=== PATIENT | female | born 1995 | race Caucasian/White ===

== ENCOUNTER 2016-08-02 23:57 | Emergency (ER) | payer MEDICAID ==
[2016-08-03] MEDS ORDERED: Morphine 10 MG/ML Syringe IV ONE (00:12)
[2016-08-03] MEDS ORDERED: Sodium Chloride 0.9% 1,000 ML IV ONE (00:12)
[2016-08-03] MEDS ORDERED: Ondansetron 4 MG/2 ML SDV IVPUSH ONE (00:13)
[2016-08-03] MEDS ORDERED: Ondansetron 4 MG/2 ML SDV ONE (00:30)
--- NOTE | 2016-08-03 00:30 | EDM.PDOC ---
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 Pool her OB outpatient yesterday. Patient was informed that she would start having significant amounts of bleeding and cramping into the report to the ER if it became intolerable. Patient indicates she has never had pain like this before.] Review of systems: As per history of present illness and below otherwise all systems reviewed and negative. Past medical history: As per history of present illness and as reviewed below otherwise noncontributory. Surgical history: As per history of present illness and as reviewed below otherwise noncontributory. Social history: No reported history of drug or alcohol abuse. Family history: As per history of present illness and as reviewed below otherwise noncontributory. Physical exam: HEENT: Atraumatic, normocephalic, pupils reactive, negative for conjunctival pallor or scleral icterus, mucous membranes moist, throat clear, neck supple, nontender, trachea midline. Lungs: Clear to auscultation, breath sounds equal bilaterally, chest nontender. Heart: S1S2, regular, negative for clicks, rubs, or JVD. Abdomen: Soft, nondistended, nontender. Negative for masses or hepatosplenomegaly. Negative for costovertebral tenderness. Pelvis: Stable nontender. Genitourinary: Deferred. Rectal: Deferred. Extremities: Atraumatic, negative for cords or calf pain. Neurovascular unremarkable. Neuro: Awake, alert, oriented. Cranial nerves II through XII unremarkable. Cerebellum unremarkable. Motor and sensory unremarkable throughout. Exam nonfocal. Patient had [facility] and Dr. Pool's office yesterday. Diagnostics: [UA, urine hCG, ultrasound transvaginal to evaluate for parts of conception] Therapeutics: [IV fluid, morphine, Zofran] Impression: [] Plan: [] Definitive disposition and diagnosis as appropriate pending reevaluation and review of above. (Ceasar Hernandez) - Related Data Allergies/ADRs: Allergies Allergy/AdvReac Type Severity Reaction Status Date / Time codeine Allergy Shortness Verified 08/03/16 00:41 of Breath Home Meds: Home Meds l-Norgest/E.estradion-E.estrad [Camrese 0.15-0.03-0.01 MG] 1 each PO DAILY 09/15 [History] Social & Family History - Tobacco Use Second Hand Smoke Exposure: No - Alcohol Use Days Per Week of Alcohol Use: 0 - Recreational Drug Use Recreational Drug Use: No <Ceasar Hernandez - Last Filed: 08/03/16 01:16> ED ROS GENERAL - Review of Systems Review Of Systems: See Below (See history of present illness) <Ceasar Hernandez - Last Filed: 08/03/16 01:16> ED EXAM - Physical Exam Exam: See Below (See history of present illness) <Ceasar Hernandez - Last Filed: 08/03/16 01:16> Course <Ceasar Hernandez - Last Filed: 08/03/16 01:16> <Fabien Eugene - Last Filed: 08/03/16 02:39> - Vital Signs Last Recorded V/S: Last Vital Signs Temp 99.1 F 08/03/16 02:24 Pulse 84 08/03/16 02:24 Resp 14 08/03/16 02:24 BP 109/58 L 08/03/16 02:24 Pulse Ox 98 08/03/16 02:24 (Fabien Eugene) - Orders/Labs/Meds Orders: Active Orders 24 hr Category Date Time Status OB 1st Tri Sgl 1st Gest [US] Stat Exams 08/03/16 00:07 Taken HCG QUALITATIVE,URINE [URCHEM] Stat Lab 08/03/16 00:07 Uncollected UA W/MICROSCOPIC [URIN] Stat Lab 08/03/16 00:07 Uncollected (Ceasar Hernandez) (Fabien Eugene) Labs: Laboratory Tests 08/03/16 08/03/16 08/03/16 Range/Units 00:18 00:18 00:18 WBC 14.64 H (4.0-11.0) K/uL RBC 4.24 L (4.30-5.90) M/uL Hgb 12.2 (12.0-16.0) g/dL Hct 36.2 (36.0-46.0) % MCV 85.4 (80.0-98.0) fL MCH 28.8 (27.0-32.0) pg MCHC 33.7 (31.0-37.0) g/dL RDW Std Deviation 38.6 (28.0-62.0) fl RDW Coeff of Louis 13 (11.0-15.0) % Plt Count 291 (150-400) K/uL MPV 10.40 (7.40-12.00) fL Neut % (Auto) 64.7 (48.0-80.0) % Lymph % (Auto) 26.0 (16.0-40.0) % [place] % (Auto) 8.8 (0.0-15.0) % Eos % (Auto) 0.3 (0.0-7.0) % Baso % (Auto) 0.2 (0.0-1.5) % Neut # (Auto) 9.5 H (1.4-5.7) K/uL Lymph # (Auto) 3.8 H (0.6-2.4) K/uL [place] # (Auto) 1.3 H (0.0-0.8) K/uL Eos # (Auto) 0.1 (0.0-0.7) K/uL Baso # (Auto) 0.0 (0.0-0.1) K/uL HCG, Quant 5488.5 mIU/mL Blood Type A NEGATIVE (Fabien Eugene) Meds: Medications Discontinued Medications Generic Name Dose Route Start Last Admin Trade Name Thony PRN Reason Stop Dose Admin Fentanyl 50 mcg 08/03/16 00:49 08/03/16 00:56 Sublimaze IVPUSH 08/03/16 00:50 50 mcg ONETIME ONE Administration Fentanyl 50 mcg 08/03/16 02:28 08/03/16 02:35 Sublimaze IVPUSH 08/03/16 02:29 50 mcg ONETIME ONE Administration Sodium Chloride 1,000 mls @ 999 mls/hr 08/03/16 00:12 08/03/16 00:20 Normal Saline IV 08/03/16 01:12 999 mls/hr STAT ONE Administration Morphine Sulfate 4 mg 08/03/16 00:12 08/03/16 00:27 Morphine IV 08/03/16 00:13 4 mg ONETIME ONE Administration Ondansetron HCl 8 mg 08/03/16 00:13 08/03/16 00:26 Zofran IVPUSH 08/03/16 00:14 8 mg ONETIME ONE Administration Ondansetron HCl Confirm 08/03/16 00:30 08/03/16 00:49 Zofran Administered 08/03/16 00:31 Not Given Dose 4 mg .ROUTE .STK-MED ONE Rho Immune Globulin 300 mcg 08/03/16 01:03 Rhophylac IM 08/03/16 01:04 ONETIME ONE (Ceasar Hernandez) (Fabien Eugene) - Re-Assessments/Exams Free Text/Narrative Re-Assessment/Exam: 08/03/16 02:36 Ceasar advised me regarding this patient. I reviewed with the patient the ultrasound findings. We discussed proper management. (Fabien Eugene) Departure <Ceasar Hernandez - Last Filed: 08/03/16 01:16> - Departure Time of Disposition: 02:45 Condition: good <Fabien Eugene - Last Filed: 08/03/16 02:39> - Departure Disposition: Home, Self-Care 01 Clinical Impression: Spontaneous , Incomplete Referrals: Angeles Pool MD [Primary Care Provider] - Forms: ED Department Discharge Additional Instructions: Followup if heavy bleeding or uncontrollable pain. Otherwise followup as previously recommended by Dr. pool. We discussed potential side effects of Percocet 10/325. We included discussion of risk of constipation sedation and habituation. He verbalizes understanding. She will be sent home with one Percocet 10 325. A prescription is written for Percocet 10 325 one by mouth every 4 hours when necessary pain dispense 30 no refills.
[2016-08-03] MEDS ORDERED: fentaNYL 100 MCG/2 ML SDV IVPUSH ONE ×2 (00:49→02:28)
[2016-08-03] MEDS ORDERED: Rho(D) Immune Globulin 300 MCG/2 ML Syringe IM ONE (01:03)
[2016-08-03] MEDS ORDERED: Acetaminophen/oxyCODONE 325-10 MG Tab PO ONE (02:40)
[2016-08-03 03:02] VITALS: BP 109/48
--- NOTE | 2016-08-03 16:24 | US ---
MEXAM DATE: 08/02/16 PATIENT'S AGE: 20 Patient: ANETTE LUND Facility: [place], [place] Site . Site : 1995 Study: US OB Pelvis [id number]/31/2017 2:00:09 AM Ordering Physician: Doctor Luis Final Report: INDICATION: Pelvic pain following miscarriage yesterday TECHNIQUE: Ultrasound OB pelvis transvaginal. Real time trejo scale imaging of the pelvis was performed. COMPARISON: None FINDINGS: The uterus measures 8.9 x 5.4 x 5 cm. Endometrium is heterogeneous and measures 22 mm in thickness near the lower uterine segment. This region has mildly increased vascularity is seen on image 23. No intrauterine gestational sac is identified. The myometrium appears normal. The right ovary measures 1.8 x 3.3 x 2.5 cm while the left ovary measures 2.4 x 1.4 x 2.2 cm. Arterial blood flow seen within both ovaries. No significant ascites noted. IMPRESSION: The endometrial complex is heterogeneous, echogenic and focally thickened near the lower uterine segment where there is also mild vascularity seen. Findings are suspicious for retained products of conception. Dictated by Trell Ace MD @ 08/03/2016 2:18:44 AM Dictated by: Trell Ace MD @ 08/03/2016 02:19:10 (Electronic Signature) Report Signed by Proxy and Original Signed Document filed in the Medical Record. [facility]
== END 2016-08-03 02:58 | disposition home or self-care (01) ==
LOC: MW.ED 23:57
DX: O03.4 Incomplete spontaneous abortion without complication (principal); Z88.5 Allergy status to narcotic agent; Z79.899 Other long term (current) drug therapy
CPT/HCPCS: 36415; 76801; 84702; 85025; 86900; 86901; 96361; 96374; 96375; 96376; 99284; J2270; J2405; J3010; J7040

== ENCOUNTER → 2016-09-18 | Outpatient (CLI) | payer MEDICAID | END | disposition home or self-care (01) | LOC: MW.CHFP 12:19 | PROVIDERS: ATTEND Emergency Medicine | DX: D18.01 Hemangioma of skin and subcutaneous tissue (principal) | CPT/HCPCS: 88305 ==

== ENCOUNTER 2017-04-03 11:25 | Emergency (ER) | payer MEDICAID ==
[2017-04-03] MEDS ORDERED: Sodium Chloride 0.9% 1,000 ML IV ONE (11:41)
--- NOTE | 2017-04-03 11:57 | EDM.PDOC ---
ED HPI GENERAL MEDICAL PROBLEM - General Chief Complaint: Cardiovascular Problem Stated Complaint: HEART ISSUES Time Seen by Provider: 04/03/17 11:35 Source of Information: Reports: Patient History Limitations: Reports: No Limitations - History of Present Illness INITIAL COMMENTS - FREE TEXT/NARRATIVE: HISTORY AND PHYSICAL: Palpitations History of present illness: Patient is a 21-year-old female who presents to the emergency room from [facility] with complaints of palpitations for 5 days. She initially presented to her [employer]NEL HEADING [employer]PERVIS[employer] with these concerns as she is 29 weeks . At [facility] they did do an EKG which showed a heart rate of 93 bpm and a normal sinus rhythm. They did assess the baby and there is no concern of any OB related problems. Patient had a normal NST although she had an episode where her heart rate reportedly went up to 120 during this exam. Patient states that she will be sitting and at rest when she feels these palpitations and they can last anywhere for a few seconds to several minutes. It is not brought on by physical activity or exertion. Denies any associated symptoms. Denies any chest pain, nausea, vomiting or shortness of breath. She does not get diaphoretic or feel like passing out. She has no previous history of an irregular heart rhythm or cardiac history. Denies any vaginal bleeding or cramping. 2 para 0 29 weeks gestation Review of systems: As per history of present illness and below otherwise all systems reviewed and negative. Past medical history: As per history of present illness and as reviewed below otherwise noncontributory. Surgical history: As per history of present illness and as reviewed below otherwise noncontributory. Social history: No reported history of drug or alcohol abuse. Family history: As per history of present illness and as reviewed below otherwise noncontributory. Physical exam: Gen.: Well-developed and well-nourished 21-year-old female. Appears in no acute distress and nontoxic. Alert and oriented. HEENT: Atraumatic, normocephalic, pupils reactive, negative for conjunctival pallor or scleral icterus, mucous membranes moist, throat clear, neck supple, nontender, trachea midline. Lungs: Clear to auscultation, breath sounds equal bilaterally, chest nontender. Heart: S1S2, regular, negative for clicks, rubs, or JVD. Abdomen: Soft, 29 weeks , nontender. Negative for masses or hepatosplenomegaly. Negative for costovertebral tenderness. Pelvis: Stable nontender. Genitourinary: Deferred. Rectal: Deferred. Extremities: Atraumatic, moves all extremities per self, negative for cords or calf pain. Neurovascular unremarkable. Neuro: Awake, alert, oriented. Cranial nerves II through XII unremarkable. Cerebellum unremarkable. Motor and sensory unremarkable throughout. Exam nonfocal. The lab results were all within normal limits at today's visit. We were unable to capture any palpitations on the EKG or athletic monitor. Patient states that she did not have any sensation of these palpitations while she has been here. I am going to place the patient on a 48-hour Holter monitor. The respiratory therapist is on her way down currently to place this on. She will return on Saturday to have this removed. These results will be forwarded to Dr. Kamara (her primary care provider) and Dr. jimenez (her [employer] HEADING [employer]PER[employer]). Patient is aware that these results will be sent to them and she will need to follow-up on this. We did discuss the need for her to limit her caffeine usage. Patient states that she does drink quite a bit of caffeinated beverages but will cut back on these. Diagnostics: CBC, CMP, TSH, EKG Therapeutics: IV fluid Impression: Palpitations Plan: 1. Please limit her caffeine use. 2. A Holter monitor was placed on you today. This will need to be removed in 48 hours. These results will be sent to Dr. Kamara (primary care provider) and Dr. jimenez (TUNNEL HEADING SUPERVISOR) and should be discussed with them. 3. Please follow-up with your [employer]NEL [employer]ING [employer]PERVISOR as you already have arranged. Return to the ED as needed and as we discussed. Definitive disposition and diagnosis as appropriate pending reevaluation and review of above. - Related Data Allergies Allergy/AdvReac Type Severity Reaction Status Date / Time codeine Allergy Shortness Verified 04/03/17 11:35 of Breath Home Meds: Home Meds l-Norgest/E.estradion-E.estrad [Camrese 0.15-0.03-0.01 MG] 1 each PO DAILY 09/15 [History] Past Medical History HEENT History: Reports: None Cardiovascular History: Reports: None Respiratory History: Reports: None Gastrointestinal History: Reports: None Genitourinary History: Reports: None T[employer]ING SUPER[employer]OR History: Reports: Musculoskeletal History: Reports: None Neurological History: Reports: None Psychiatric History: Reports: None Endocrine/Metabolic History: Reports: None Hematologic History: Reports: None Immunologic History: Reports: None Oncologic (Cancer) History: Reports: None Dermatologic History: Reports: None - Infectious Disease History Infectious Disease History: Reports: None - Past Surgical History HEENT Surgical History: Reports: Adenoidectomy, Tonsillectomy GI Surgical History: Reports: Cholecystectomy Female Surgical History: Reports: Other (See Below) Other Female Surgeries/Procedures: Explor lap Social & Family History - Family History Family Medical History: Noncontributory - Tobacco Use Smoking Status *Q: Never Smoker Second Hand Smoke Exposure: No - Caffeine Use Caffeine Use: Reports: None - Alcohol Use Days Per Week of Alcohol Use: 0 - Recreational Drug Use Recreational Drug Use: No ED ROS GENERAL - Review of Systems Review Of Systems: ROS reveals no pertinent complaints other than HPI. ED EXAM, GENERAL - Physical Exam Exam: See Below (See dictation) Course - Vital Signs Last Recorded V/S: Last Vital Signs Temp 97.3 F 04/03/17 11:25 Pulse 91 04/03/17 11:25 Resp 18 04/03/17 11:25 BP 119/58 L 04/03/17 11:25 Pulse Ox 97 04/03/17 11:25 - Orders/Labs/Meds Orders: Active Orders 24 hr Category Date Time Status Cardiac Monitoring [RC] . DIRECTED Care 04/03/17 11:34 Active Communication Order [RC] STAT Care 04/03/17 11:34 Active EKG Documentation Completion [RC] STAT Care 04/03/17 11:34 Active Labs: Laboratory Tests 04/03/17 04/03/17 Range/Units 11:50 11:50 WBC 10.62 (4.0-11.0) K/uL RBC 3.70 L (4.30-5.90) M/uL Hgb 10.8 L (12.0-16.0) g/dL Hct 32.4 L (36.0-46.0) % MCV 87.6 (80.0-98.0) fL MCH 29.2 (27.0-32.0) pg MCHC 33.3 (31.0-37.0) g/dL RDW Std Deviation 41.4 (28.0-62.0) fl RDW Coeff of Louis 13 (11.0-15.0) % Plt Count 268 (150-400) K/uL MPV 10.70 (7.40-12.00) fL Neut % (Auto) 72.2 (48.0-80.0) % Lymph % (Auto) 20.1 (16.0-40.0) % [place] % (Auto) 7.1 (0.0-15.0) % Eos % (Auto) 0.3 (0.0-7.0) % Baso % (Auto) 0.3 (0.0-1.5) % Neut # (Auto) 7.7 H (1.4-5.7) K/uL Lymph # (Auto) 2.1 (0.6-2.4) K/uL [place] # (Auto) 0.8 (0.0-0.8) K/uL Eos # (Auto) 0.0 (0.0-0.7) K/uL Baso # (Auto) 0.0 (0.0-0.1) K/uL Nucleated RBC % 0.0 /100WBC Nucleated RBCs # 0 K/uL Sodium 136 (136-146) mmol/L Potassium 4.2 (3.5-5.1) mmol/L Chloride 107 (98-110) mmol/L Carbon Dioxide 21 (21-31) mmol/L BUN 5 L (6.0-23.0) mg/dL Creatinine 0.6 (0.6-1.5) mg/dL Est Cr Clr Drug Dosing 116.32 mL/min Estimated GFR (MDRD) > 60.0 ml/min Glucose 82 (60-110) mg/dL Calcium 9.3 (8.8-10.8) mg/dL Total Bilirubin 0.3 (0.1-1.5) mg/dL AST 20 (5-40) IU/L ALT 18 (8-54) IU/L Alkaline Phosphatase 150 (40-150) Total Protein 7.1 (6.0-8.0) g/dL Albumin 3.5 (3.5-5.0) g/dL Globulin 3.6 H (2.0-3.5) g/dL Albumin/Globulin Ratio 1.0 L (1.3-2.8) TSH 3rd Generation 1.95 (0.47-5.0) uIU/mL Meds: Medications Discontinued Medications Generic Name Dose Route Start Last Admin Trade Name Thony PRN Reason Stop Dose Admin Sodium Chloride 1,000 mls @ 999 mls/hr 04/03/17 11:41 04/03/17 12:04 Normal Saline IV 04/03/17 12:41 999 mls/hr STAT ONE Administration Departure - Departure Time of Disposition: 13:18 Disposition: Home, Self-Care 01 Clinical Impression: Palpitations Referrals: Harsha Kamara MD [Primary Care Provider] - Forms: ED Department Discharge Additional Instructions: My general discharge The following information is given to patients seen in the emergency department who are being discharged to home. This information is to outline your options for follow-up care. We provide all patients seen in our emergency department with a follow-up referral. The need for follow-up, as well as the timing and circumstances, are variable depending upon the specifics of your emergency department visit. If you don't have a primary care physician on staff, we will provide you with a referral. We always advise you to contact your personal physician following an emergency department visit to inform them of the circumstance of the visit and for follow-up with them and/or the need for any referrals to a consulting specialist. The emergency department will also refer you to a specialist when appropriate. This referral assures that you have the opportunity for follow-up care with a specialist. All of these measure are taken in an effort to provide you with optimal care, which includes your follow-up. Under all circumstances we always encourage you to contact your private physician who remains a resource for coordinating your care. When calling for follow-up care, please make the office aware that this follow-up is from your recent emergency room visit. If for any reason you are refused follow-up, please contact the [facility] Emergency Department at and asked to speak to the emergency department charge nurse. [facility] [address] [place] [id number] [facility] [address], [place] [address] 1. Please limit your caffeine use. 2. A Holter monitor was placed on you today. This will need to be removed in 48 hours. These results will be sent to Dr. Kamara (primary care provider) and Dr. jimenez (T[employer]NEL HEADING SUPERVISOR) and should be discussed with them. 3. Please follow-up with your T[employer]NEL HEADING SUPERVISOR as you already have arranged. Return to the ED as needed and as we discussed. - My Orders Last 24 Hours: My Active Orders 04/03/17 11:34 Cardiac Monitoring [RC] . DIRECTED Communication Order [RC] STAT EKG Documentation Completion [RC] STAT - Assessment/Plan Last 24 Hours: My Active Orders 04/03/17 11:34 Cardiac Monitoring [RC] . DIRECTED Communication Order [RC] STAT EKG Documentation Completion [RC] STAT
[2017-04-03 12:29] LABS: CHLORIDE,CL 107 mmol/L (98-110); SODIUM,NA 136 mmol/L (136-146)
[2017-04-03 13:34] VITALS: BP 107/67
== END 2017-04-03 13:26 | disposition home or self-care (01) ==
LOC: MW.ED 11:25
DX: O99.89 Other specified diseases and conditions complicating pregnancy, childbirth and the puerperium (principal); R00.2 Palpitations; Z88.5 Allergy status to narcotic agent; Z3A.29 29 weeks gestation of pregnancy
CPT/HCPCS: 36415; 80053; 84443; 85025; 93005; 93225; 96360; 99285; J7040

== ENCOUNTER 2017-04-13 19:10 | Observation (INO) | payer OTHER, MEDICAID ==
--- NOTE | 2017-04-15 16:22 | US ---
EXAM DATE: 04/13/17 PATIENT'S AGE: 21 Patient: ANETTE LUND Facility: [place], [place] Site . Site : 1995 Study: US OB Pelvis [id number]/9/2017 9:11:17 PM Ordering Physician: Yrn Reynoso Final Report: INDICATION: Fall. TECHNIQUE: Ultrasound OB pelvis. COMPARISON: None. FINDINGS: Sonographic imaging demonstrates a single living intrauterine gestation. Fetus demonstrates a regular cardiac rate of 150 beats per minute. The placenta lies posteriorly and appears grossly unremarkable as visualized. Amniotic fluid volume appears normal with an DARLIN of 15.2 cm. breathing movements, motion, and tone were all observed. IMPRESSION: 1. Single living intrauterine with a biophysical profile of 8/8. 2. Grossly unremarkable placenta. Dictated by Sergey Crawford MD @ 04/13/2017 9:48:43 PM Dictated by: Sergey Crawford MD @ 04/13/2017 21:48:51 (Electronic Signature) Report Signed by Proxy. [facility]
== END 2017-04-13 23:35 | disposition left against medical advice (07) ==
LOC: MW.OBCHECK 19:10 → MW.OB 19:11 → MW.OBCHECK 19:25 → MW.OB 19:25
PROVIDERS: ADMIT Obstetrics & Gynecology; ATTEND Obstetrics & Gynecology
DX: Z04.3 Encounter for examination and observation following other accident (principal); Z3A.31 31 weeks gestation of pregnancy; W00.0XXA Fall on same level due to ice and snow, initial encounter
CPT/HCPCS: 36415; 59025; 76819; 81001; 85025; 85027; 85610; 86850; 86870; 86900; 86901; G0378

== ENCOUNTER 2017-05-29 05:15 | Inpatient (IN) | payer OTHER, MEDICAID ==
[2017-05-29] MEDS ORDERED: Sodium Chloride 0.9% 2.5 ML Syringe FLUSH PRN (06:12)
[2017-05-29] MEDS ORDERED: Misoprostol 200 MCG Tab PO PRN (06:12)
[2017-05-29] MEDS ORDERED: Sodium Chloride 0.9% 10 ML Syringe FLUSH PRN (06:12)
[2017-05-29] MEDS ORDERED: Butorphanol 1 MG/ML SDV IVPUSH PRN (06:12)
[2017-05-29] MEDS ORDERED: Methylergonovine 0.2 MG/1 ML Amp IM PRN ×2 (06:12→10:29)
[2017-05-29] MEDS ORDERED: Lidocaine 1% 50 ML MDV INJECT PRN (06:12)
[2017-05-29] MEDS ORDERED: Carboprost Tromethamine 250 MCG/1 ML Amp IM PRN (06:12)
[2017-05-29] MEDS ORDERED: Nalbuphine 10 MG/1 ML Vial IVPUSH PRN (06:12)
[2017-05-29] MEDS ORDERED: Water For Irrigation,Sterile 1,000 ML Container IRR PRN (06:12)
[2017-05-29] MEDS ORDERED: Oxytocin/0.9 % Sodium Chloride 30 UNIT/500 ML BAG IV SCH (06:15)
[2017-05-29] MEDS: Lactated Ringers 1,000 ML IV SCH ×2 (06:25→07:15)
[2017-05-29] MEDS ORDERED: Ropivacaine 100 ML ONE (06:50)
[2017-05-29] MEDS ORDERED: Ropivacaine 0.2% 2 MG/ML 20 ML SDV ONE (06:50)
[2017-05-29] MEDS ORDERED: fentaNYL 100 MCG/2 ML SDV ONE (06:50)
--- NOTE | 2017-05-29 07:17 | PCM.PREANE ---
Preanesthetic Assessment - Anesthesia/Transfusion/Family Hx Anesthesia History: Prior Anesthesia Without Reaction Family History of Anesthesia Reaction: No - Review of Systems Other: Reports: None - Physical Assessment Height: 5 ft 2 in Weight: 82.1 kg ASA Class: 2 Mental Status: Alert & Oriented x3 Dentition: Reports: Normal Dentition Thyro-Mental Finger Breadths: 3 Mouth Opening Finger Breadths: 3 ROM/Head Extension: Full - Lab Values: Laboratory Last Values WBC 11.36 K/uL (4.0-11.0) H 05/29/17 06:22 RBC 4.21 M/uL (4.30-5.90) L 05/29/17 06:22 Hgb 11.7 g/dL (12.0-16.0) L 05/29/17 06:22 Hct 35.3 % (36.0-46.0) L 05/29/17 06:22 MCV 83.8 fL (80.0-98.0) 05/29/17 06:22 MCH 27.8 pg (27.0-32.0) 05/29/17 06:22 MCHC 33.1 g/dL (31.0-37.0) 05/29/17 06:22 RDW Std Deviation 40.6 fl (28.0-62.0) 05/29/17 06:22 RDW Coeff of Louis 14 % (11.0-15.0) 05/29/17 06:22 Plt Count 221 K/uL (150-400) 05/29/17 06:22 MPV 11.80 fL (7.40-12.00) 05/29/17 06:22 Nucleated RBC % 0.0 /100WBC 05/29/17 06:22 Nucleated RBCs # 0 K/uL 05/29/17 06:22 - Allergies Allergies/Adverse Reactions: Allergies Allergy/AdvReac Type Severity Reaction Status Date / Time codeine Allergy Shortness Verified 05/29/17 06:50 of Breath - Blood Blood Available: Yes Product(s) Available: PRBC - Acknowledgements Anesthesia Type Planned: Epidural Pt an Appropriate Candidate for the Planned Anesthesia: Yes Alternatives and Risks of Anesthesia Discussed w Pt/Guardian: Yes Pt/Guardian Understands and Agrees with Anesthesia Plan: Yes PreAnesthesia Questionnaire HEENT History: Reports: None Cardiovascular History: Reports: None Respiratory History: Reports: None Gastrointestinal History: Reports: None Genitourinary History: Reports: None PUBLIC HEALTH SPECIALIST History: Reports: Musculoskeletal History: Reports: None Neurological History: Reports: None Psychiatric History: Reports: None Endocrine/Metabolic History: Reports: None Hematologic History: Reports: None Immunologic History: Reports: None Oncologic (Cancer) History: Reports: None Dermatologic History: Reports: None - Infectious Disease History Infectious Disease History: Reports: None - Past Surgical History HEENT Surgical History: Reports: Adenoidectomy, Tonsillectomy GI Surgical History: Reports: Cholecystectomy Female Surgical History: Reports: Other (See Below) Other Female Surgeries/Procedures: Explor lap - SUBSTANCE USE Smoking Status *Q: Never Smoker Second Hand Smoke Exposure: No Days Per Week of Alcohol Use: 0 Recreational Drug Use History: No - HOME MEDS Home Medications: Home Meds l-Norgest/E.estradion-E.estrad [Camrese 0.15-0.03-0.01 MG] 1 each PO DAILY 09/15 [History] - CURRENT (IN HOUSE) MEDS Current Meds: Current Medications Butorphanol Tartrate (Stadol) 1 mg IVPUSH Q1H PRN PRN Reason: Pain Carboprost Tromethamine (Hemabate Ds) 250 mcg IM ASDIRECTED PRN PRN Reason: Post Hemorrhage Lactated Ringer's (Ringers, Lactated) 1,000 mls @ 150 mls/hr IV ASDIRECTED [facility] Last Admin: 05/29/17 07:15 Dose: 150 mls/hr Oxytocin/Sodium Chloride (Oxytocin 30 Unit/500 Ml-Ns) 30 unit in 500 mls @ 999 mls/hr IV TITRATE [facility] Lidocaine HCl (Xylocaine 1%) 50 ml INJECT .ONCE PRN PRN Reason: Laceration repair Methylergonovine Maleate (Methergine) 0.2 mg IM ASDIRECTED PRN PRN Reason: Post Hemorrhage Misoprostol (Cytotec) 200 mcg PO .ONCE PRN PRN Reason: Post Hemorrhage Nalbuphine HCl (Nubain) 10 mg IVPUSH Q1H PRN PRN Reason: Pain (severe 7-10) Sodium Chloride (Saline Flush) 10 ml FLUSH ASDIRECTED PRN PRN Reason: Keep Vein Open Sodium Chloride (Saline Flush) 2.5 ml FLUSH ASDIRECTED PRN PRN Reason: Keep Vein Open Sterile Water (Sterile Water For Irrigation) 1,000 ml IRR ASDIRECTED PRN PRN Reason: delivery Discontinued Medications Fentanyl (Sublimaze) Confirm Administered Dose 200 mcg .ROUTE .STK-MED ONE Stop: 05/29/17 06:51 Ropivacaine (Naropin 0.2%) Confirm Administered Dose 100 mls @ as directed .ROUTE .STK-MED ONE Stop: 05/29/17 06:51 Ropivacaine (Naropin 0.2%) Confirm Administered Dose 20 ml .ROUTE .STK-MED ONE Stop: 05/29/17 06:51
[2017-05-29] MEDS ORDERED: Ibuprofen 400 MG Tab PO PRN (10:29)
[2017-05-29] MEDS ORDERED: Lanolin 100% Cream 7 GM Tube TOP PRN (10:29)
[2017-05-29] MEDS ORDERED: Witch Hazel Medicated Pads 40/Jar TOP PRN (10:29)
[2017-05-29] MEDS ORDERED: Bisacodyl 10 MG Supp RECTAL PRN (10:29)
[2017-05-29] MEDS ORDERED: Docusate Sodium 100 MG Cap PO PRN (10:29)
[2017-05-29] MEDS ORDERED: Acetaminophen 500 MG Tab PO PRN ×2 (10:29)
[2017-05-29] MEDS ORDERED: Benzocaine/Menthol 20%-0.5% Spray 78 GM Cannister TOP PRN (10:29)
--- NOTE | 2017-05-29 11:59 | OR ---
SURGEON: Angeles Pool M.D. DATE OF PROCEDURE: 05/29/2017 PREOPERATIVE DIAGNOSES: 1. A 37 and 6/7th week intrauterine . 2. Active spontaneous labor. 3. Group B strep negative. 4. Blood type A negative. POSTOPERATIVE DIAGNOSES: 1. A 37 and 6/7th week intrauterine . 2. Active spontaneous labor. 3. Group B strep negative. 4. Blood type A negative. PROCEDURES: 1. Term spontaneous vaginal delivery. 2. Repair of second-degree laceration. ANESTHESIA: Epidural and local. ESTIMATED BLOOD LOSS: Less than 300 mL. FINDINGS: Live born female, scores 9 and 9, weighing 3570 g. Placenta delivered. Gonsalves intact with 3 vessels, noted to be a very short umbilical cord. COMPLICATIONS: None known. DISPOSITION: Mother and baby are in LDRP in good condition. INDICATIONS: This is a 21-year-old female, G2, P0-0-1-0. She presents at 37 and 6/7th weeks' gestation in active spontaneous labor, category 1 heart tones, group B strep negative. When she was 8 cm dilated, artificial rupture of membranes was performed. She had received an epidural for pain control. She had intermittent variable and late decelerations followed by intermittent category 1 heart tones, which were overall adequate during labor. She progressed to complete. DESCRIPTION OF PROCEDURE: With the patient in dorsal lithotomy position, the patient pushed over 1-1/2 hour time period to a 5+ station, at which time the head was delivered spontaneously and atraumatically over the perineum with support with subsequent delivery of the 's shoulders and body. The infant was bulb suctioned by nose and mouth. The cord was very short and therefore it was doubly clamped and cut before the infant was handed to the mother. The was a liveborn female, score 9 and 9, weighing 3570 g. Cord blood was collected for cord ABGs as well as routine cord blood sampling. Pitocin was initiated after delivery of the to assist with delivery of the placenta, which was delivered spontaneously. Corby intact spontaneously. Gonsalves intact with 3 vessels. Upon inspection of the pelvis and perineum, there was a second-degree perineal laceration that extended up onto the right labia majora. Additional 1% lidocaine was injected into the perineal tissue as well as additional boluses from the epidural. With this she had moderate pain control. A 2-0 Caprosyn was utilized in a running suture for the vaginal mucosa. A deep running suture of the same for the perineal tissue and subcuticular suture of the same for the skin. Final sponge, needle, and instrument count were correct. There were no known complications. Mother and are in LDRP in good condition. HUY MINOR /[id number]
--- NOTE | 2017-05-29 18:24 | PCM48HPAN ---
Post Anesthesia Note - EVALUATION WITHIN 48HRS OF ANESTHETIC Vital Signs in Normal Range: Yes Patient Participated in Evaluation: Yes Respiratory Function Stable: Yes Airway Patent: Yes Cardiovascular Function Stable: Yes Hydration Status Stable: Yes Pain Control Satisfactory: Yes Nausea and Vomiting Control Satisfactory: Yes Mental Status Recovered: Yes
[2017-05-29] MEDS: Ibuprofen 800 MG Tab PO PRN (19:43)
[2017-05-30] MEDS: Ibuprofen 800 MG Tab PO PRN (08:12)
--- NOTE | 2017-05-30 08:18 | PCM.PNPP ---
- General Info Date of Service: 05/30/17 Functional Status: Reports: Pain Controlled, Tolerating Diet, Ambulating, Urinating - Review of Systems General: Denies: Fever, Weakness, Fatigue Pulmonary: Denies: Shortness of Breath, Pleuritic Chest Pain, Cough Cardiovascular: Denies: Chest Pain, Palpitations, Dyspnea on Exertion Gastrointestinal: Denies: Abdominal Pain Genitourinary: Denies: Dysuria - General Info Date of Service: 05/30/17 - Patient Data Vital Signs - Most Recent: Last Vital Signs Temp 36.4 C 05/30/17 06:00 Pulse 78 05/30/17 06:00 Resp 16 05/30/17 06:00 BP 109/54 L 05/30/17 06:00 Pulse Ox 99 05/30/17 06:00 Weight - Most Recent: 82.1 kg Lab Results - Last 24 Hours: Laboratory Results - last 24 hr 05/29/17 05/29/17 05/30/17 Range/Units 10:01 10:01 04:11 Hgb 8.6 L (12.0-16.0) g/dL Hct 26.1 L (36.0-46.0) % Cord ABG pH 7.255 (7.18-7.38) Cord ABG Base Excess -3 (-10--2) Cord VBG pH 7.238 L (7.25-7.45) Cord VBG Base Excess -7 (-10--2) Med Orders - Current: Current Medications Acetaminophen (Tylenol Extra Strength) 500 mg PO Q4H PRN PRN Reason: Pain Acetaminophen (Tylenol Extra Strength) 1,000 mg PO Q4H PRN PRN Reason: Pain Last Admin: 05/29/17 15:46 Dose: 1,000 mg Benzocaine/Menthol (Dermoplast Pain Relief 20%-0.5% [place]) 78 gm TOP ASDIRECTED PRN PRN Reason: Perineal Comfort Measure Last Admin: 05/29/17 18:07 Dose: 1 can Bisacodyl (Dulcolax) 10 mg RECTAL .ONCE PRN PRN Reason: Constipation Docusate Sodium (Colace) 100 mg PO BID PRN PRN Reason: Constipation Emollient Ointment (Lansinoh Hpa) 0 gm TOP ASDIRECTED PRN PRN Reason: Sore Nipples Last Admin: 05/29/17 20:56 Dose: 7 gm Ibuprofen (Motrin) 400 mg PO Q4H PRN PRN Reason: Pain Ibuprofen (Motrin) 800 mg PO Q6H PRN PRN Reason: Pain Last Admin: 05/29/17 19:43 Dose: 800 mg Methylergonovine Maleate (Methergine) 0.2 mg IM .ONCE PRN PRN Reason: Excessive Vaginal Bleeding Witch Sarah Beth (Tucks) 1 pad TOP ASDIRECTED PRN PRN Reason: comfort care Last Admin: 05/29/17 20:56 Dose: 1 pad Discontinued Medications Butorphanol Tartrate (Stadol) 1 mg IVPUSH Q1H PRN PRN Reason: Pain Carboprost Tromethamine (Hemabate Ds) 250 mcg IM ASDIRECTED PRN PRN Reason: Post Hemorrhage Fentanyl (Sublimaze) Confirm Administered Dose 200 mcg .ROUTE .[place] ONE Stop: 05/29/17 06:51 Last Admin: 05/29/17 07:46 Dose: Not Given Lactated Ringer's (Ringers, Lactated) 1,000 mls @ 150 mls/hr IV ASDIRECTED FANG Last Admin: 05/29/17 07:15 Dose: 150 mls/hr Oxytocin/Sodium Chloride (Oxytocin 30 Unit/500 Ml-Ns) 30 unit in 500 mls @ 999 mls/hr IV TITRATE [facility] Last Admin: 05/29/17 10:03 Dose: 500 mls/hr Ropivacaine (Naropin 0.2%) Confirm Administered Dose 100 mls @ as directed .ROUTE .[employer]-MED ONE Stop: 05/29/17 06:51 Last Admin: 05/29/17 07:45 Dose: Not Given Lidocaine HCl (Xylocaine 1%) 50 ml INJECT .ONCE PRN PRN Reason: Laceration repair Last Admin: 05/29/17 17:58 Dose: 50 ml Methylergonovine Maleate (Methergine) 0.2 mg IM ASDIRECTED PRN PRN Reason: Post Hemorrhage Misoprostol (Cytotec) 200 mcg PO .ONCE PRN PRN Reason: Post Hemorrhage Nalbuphine HCl (Nubain) 10 mg IVPUSH Q1H PRN PRN Reason: Pain (severe 7-10) Ropivacaine (Naropin 0.2%) Confirm Administered Dose 20 ml .ROUTE .STK-MED ONE Stop: 05/29/17 06:51 Last Admin: 05/29/17 07:45 Dose: Not Given Sodium Chloride (Saline Flush) 10 ml FLUSH ASDIRECTED PRN PRN Reason: Keep Vein Open Sodium Chloride (Saline Flush) 2.5 ml FLUSH ASDIRECTED PRN PRN Reason: Keep Vein Open Sterile Water (Sterile Water For Irrigation) 1,000 ml IRR ASDIRECTED PRN PRN Reason: delivery Last Admin: 05/29/17 10:00 Dose: 1,000 ml - Interaction Infant Disposition, : [place] in Room with Family Feeding: Attempted ; Nursed Fair/Poor Support Person: Significant Other - Recovery Exam Fundal Tone: Firm Fundal Level: 1 Fingerbreadths Below Umbilicus Fundal Placement: Midline Lochia Amount: Scant, Small Lochia Color: Rubra/Red Perineum Description: Other (see below) Other Perinuem Description: 2nd degree tear Episiotomy/Laceration: Approximated Bladder Status: Voiding Urinary Elimination: Voided - Exam Neck: Supple Lungs: Clear to Auscultation, Normal Respiratory Effort Cardiovascular: Regular Rate, Regular Rhythm GI/Abdominal Exam: Normal Bowel Sounds, Soft, Non-Tender, No Organomegaly, No Distention Extremities: Normal Inspection, Pedal Edema (trace) - Problem List & Annotations (1) Vaginal delivery SNOMED Code(s): 466633139 Code(s): O80 - ENCOUNTER FOR FULL-TERM UNCOMPLICATED DELIVERY Status: Acute Current Visit: Yes - Problem List Review Problem List Initiated/Reviewed/Updated: Yes - Assessment Assessment:: PPD #1 s/p . Minimal pain and lochia. Breast feeding well. Will start iron supplement with PNV. Discharge home today. - Plan Plan:: Discharge instructions reviewed. Nothing in the vagina for 6 weeks. Continue PNV while breast feeding. Can use OTC ibuprofen/tylenol as needed for pain. Instructed patient to call if she develops fever greater than 101 or bleeding through a large pad an hour. F/U with [facility] in 6 weeks.
[2017-05-30 09:10] VITALS: BP 111/57
== END 2017-05-30 13:00 | disposition home or self-care (01) | DRG 775 ==
LOC: MW.OBCHECK 05:15 → MW.OB 05:16 → MW.OBCHECK 06:12 → MW.OB 06:12 → OBSVTOIN 10:01 → MW.OB 13:30
PROVIDERS: ADMIT Obstetrics & Gynecology; ATTEND Obstetrics & Gynecology
PROC: 10E0XZZ Delivery of Products of Conception, External Approach (ICD-10-PCS; principal; 2017-05-29)
PROC: 0KQM0ZZ Repair Perineum Muscle, Open Approach (ICD-10-PCS; 2017-05-29)
PROC: 10907ZC Drainage of Amniotic Fluid, Therapeutic from Products of Conception, Via Natural or Artificial Opening (ICD-10-PCS; 2017-05-29)
DX: O70.1 Second degree perineal laceration during delivery (principal); Z37.0 Single live birth; Z3A.37 37 weeks gestation of pregnancy
CPT/HCPCS: 36415; 51702; 59025; 59409; 82803; 85014; 85018; 85027; 86850; 86900; 86901; A9270-GY; J2590; J2795; J3010; J7120

== ENCOUNTER 2023-06-05 03:14 | Inpatient (IN) | payer BC ==
[2023-06-05] MEDS ORDERED: Carboprost Tromethamine 250 MCG/1 mL Vial IM PRN (03:22)
[2023-06-05] MEDS ORDERED: Sodium Chloride 0.9% 20 ML SDV IV PRN (03:22)
[2023-06-05] MEDS ORDERED: Tranexamic Acid IN NACL,ISO-OS 1,000 MG in Premix Bag 1 BAG IV PRN ×4 (03:22→06:54)
[2023-06-05] MEDS ORDERED: Nalbuphine 10 MG/0.5 ML Syringe IVPUSH PRN (03:22)
[2023-06-05] MEDS ORDERED: Sodium Chloride 0.9% 10 ML Syringe FLUSH PRN (03:22)
[2023-06-05] MEDS ORDERED: Water For Irrigation,Sterile 1,000 ML Container IRR PRN (03:22)
[2023-06-05] MEDS ORDERED: Methylergonovine 0.2 MG/1 ML Amp IM PRN ×2 (03:22→06:54)
[2023-06-05] MEDS ORDERED: Sodium Chloride 0.9% 2.5 ML Syringe FLUSH PRN (03:22)
[2023-06-05] MEDS ORDERED: Misoprostol 200 MCG Tab PO PRN (03:22)
[2023-06-05] MEDS ORDERED: Lidocaine 1% 50 ML MDV INJECT PRN (03:22)
[2023-06-05] MEDS ORDERED: Ondansetron 4 MG/2 ML SDV IVPUSH PRN (03:22)
[2023-06-05] MEDS ORDERED: Oxytocin/0.9 % Sodium Chloride 30 UNIT/500 ML BAG IV SCH (03:30)
[2023-06-05] MEDS: Lactated Ringers 1,000 ML IV SCH ×2 (03:32→04:35)
[2023-06-05 03:40] LABS: HEMATOCRIT 35.2 % (37.0-47.0); HEMOGLOBIN 11.8 g/dL (12.0-16.0); MEAN CORPUSCULAR HEMOGLOBIN 28.1 pg (28.0-32.0); MEAN CORPUSCULAR HGB CONC 33.5 g/dL (32.0-36.0); MEAN CORPUSCULAR VOLUME 83.8 fL (83.0-99.0); MEAN PLATELET VOLUME 11.8 fL (9.4-12.3); PLATELET COUNT,PLT 231 K/uL (150-400); WHITE BLOOD CELL COUNT,WBC 11.05 K/uL (3.9-11.3)
[2023-06-05] MEDS ORDERED: Bupivacaine 0.25% 10 ML SDV ONE (04:00)
[2023-06-05] MEDS ORDERED: Ropivacaine HCl/PF 200 ML ONE (04:00)
[2023-06-05] MEDS ORDERED: Phenylephrine HCl 0.5 MG/5 ML AMP ONE (04:00)
[2023-06-05] MEDS ORDERED: fentaNYL 100 MCG/2 ML SDV ONE (04:00)
[2023-06-05] MEDS ORDERED: ePHEDrine 50 MG/ML SDV IVPUSH PRN ×2 (04:11)
[2023-06-05] MEDS ORDERED: Phenylephrine HCl 0.5 MG/5 ML AMP IVPUSH PRN (04:11)
[2023-06-05] MEDS ORDERED: Ropivacaine HCl/PF 400 MG in Premix Bag 1 BAG EPIDUR SCH (04:15)
[2023-06-05] MEDS ORDERED: Acetaminophen 500 MG Tab PO PRN (06:54)
[2023-06-05] MEDS ORDERED: Lanolin 100% Cream 7 GM Tube TOP PRN (06:54)
[2023-06-05] MEDS ORDERED: Docusate Sodium 100 MG Cap PO PRN (06:54)
[2023-06-05] MEDS ORDERED: Ibuprofen 800 MG Tab PO PRN (06:54)
[2023-06-05 07:06] LABS: PH,UMBILICAL ARTERIAL 7.16 (7.18-7.38)
[2023-06-05 07:07] LABS: PH,UMBILICAL VENOUS 7.305 (7.25-7.45)
[2023-06-05] MEDS: ceFAZolin 2 GM in Sodium Chloride 0.9% 50 ML IV SCH ×3 (07:46→23:23)
[2023-06-05] MEDS: Witch Hazel Medicated Pads 40/Jar TOP PRN ×2 (07:47→20:40)
[2023-06-05] MEDS: Benzocaine/Menthol 20%-0.5% Spray 78 GM Cannister TOP PRN ×2 (07:48→20:40)
[2023-06-05] MEDS: Prenatal Multivitamin with Calcium/Folic Acid/Iron Tab PO SCH (08:00)
[2023-06-06 06:32] LABS: HEMOGLOBIN 10.8 g/dL (12.0-16.0)
[2023-06-06] MEDS: ceFAZolin 2 GM in Sodium Chloride 0.9% 50 ML IV SCH (07:35)
[2023-06-06 08:20] VITALS: BP 120/80; PULSE 76
[2023-06-06] MEDS: Prenatal Multivitamin with Calcium/Folic Acid/Iron Tab PO SCH (09:47)
== END 2023-06-06 12:05 | disposition home or self-care (01) | DRG 560 ==
LOC: MW.OBCHECK 03:14 → MW.OB 03:15 → MW.OBCHECK 03:24 → OBSVTOIN 06:19 → MW.OB 12:04
PROVIDERS: ADMIT Obstetrics & Gynecology; ATTEND Obstetrics & Gynecology
PROC: 10E0XZZ Delivery of Products of Conception, External Approach (ICD-10-PCS; principal; 2023-06-05)
PROC: 3E0R3BZ Introduction of Anesthetic Agent into Spinal Canal, Percutaneous Approach (ICD-10-PCS; 2023-06-05)
PROC: 00HU33Z Insertion of Infusion Device into Spinal Canal, Percutaneous Approach (ICD-10-PCS; 2023-06-05)
PROC: 10907ZC Drainage of Amniotic Fluid, Therapeutic from Products of Conception, Via Natural or Artificial Opening (ICD-10-PCS; 2023-06-05)
DX: O99.02 Anemia complicating childbirth (principal); D64.9 Anemia, unspecified; Z37.0 Single live birth; Z3A.39 39 weeks gestation of pregnancy
CPT/HCPCS: 36415; 51702; 59025; 59409; 82803; 85014; 85018; 85027; 85460; 86592; 86850; 86900; 86901; A9270-GY; J0690; J2371; J2590; J2790; J2795; J3010; J3490; J7120